=== PATIENT | male | born 1995 | race African-American/Black ===

== ENCOUNTER 2019-05-07 21:34 | Outpatient (CLI) | payer OTHER | END 2019-05-07 21:51 | disposition short-term general hospital (02) | LOC: AMB 21:34 | DX: S01.01XA Laceration without foreign body of scalp, initial encounter (principal); M54.89 Other dorsalgia; M25.512 Pain in left shoulder; V49.3XXA Car occupant (driver) (passenger) injured in unspecified nontraffic accident, initial encounter; Y92.488 Other paved roadways as the place of occurrence of the external cause | CPT/HCPCS: A0425; A0427 ==

== ENCOUNTER 2019-05-07 22:05 | Emergency (ER) | payer OTHER ==
[~2019-05-07] VITALS: Ht 162.6 cm; Wt 81.6 kg
[2019-05-07 22:35] LABS: PLATELET COUNT 281 K/uL (142-355)
[2019-05-07 22:37] LABS: POTASSIUM 3.1 mmol/L (3.6-5.2)
[2019-05-07 22:48] LABS: PARTIAL THROMBOPLASTIN TIME 19.2 SECONDS (24.5-33.6)
[2019-05-07 23:04] VITALS: BP 131/58; TEMP 97.9
== END 2019-05-07 23:04 | disposition short-term general hospital (02) ==
LOC: ED 22:10
PROVIDERS: Hospitalist
PROC: 0T9B70Z Drainage of Bladder with Drainage Device, Via Natural or Artificial Opening (ICD-10-PCS; principal; 2019-05-07)
DX: S09.8XXA Other specified injuries of head, initial encounter (principal); S06.0X1A Concussion with loss of consciousness of 30 minutes or less, initial encounter; M25.512 Pain in left shoulder; S01.01XA Laceration without foreign body of scalp, initial encounter; V49.3XXA Car occupant (driver) (passenger) injured in unspecified nontraffic accident, initial encounter; Y92.89 Other specified places as the place of occurrence of the external cause
CPT/HCPCS: 36415; 51702; 80053; 80307; 80320; 81000; 85027; 85610; 85730; 90471; 90715; 96365; 96375; 99285; J0690; J2270; J2405